=== PATIENT | female | born 1950 | race Caucasian/White ===

== ENCOUNTER 2020-09-30 12:20 | Outpatient (CLI) | payer MEDICARE, OTHER ==
[~2020-09-30 12:20] MED LIST: CLON0.1T12 PO; LISI40TA9; METO25TA91; OLME20TA17 PO
== END 2020-09-30 23:59 | disposition home or self-care (01) ==
LOC: CFH 12:20
PROVIDERS: ATTEND Family Medicine
DX: N63.0 Unspecified lump in unspecified breast (principal)
CPT/HCPCS: 76642; 77062; 77066; G0279